=== PATIENT | female | born 1970 ===

== ENCOUNTER 2020-08-07 10:30 | Inpatient (IN) | payer OTHER ==
[~2020-08-07] VITALS: Ht 157.5 cm; Wt 72.6 kg
[2020-08-07] MEDS ORDERED: DAILY MULTIPLE1 EAC2 PO (13:44)
[2020-08-13] MEDS ORDERED: NEURONTIN600 MG PO (07:27)
[2020-08-13] MEDS ORDERED: ACETAMINOPHEN500 M1 PO (07:27)
[2020-08-13] MEDS ORDERED: SIMETHICONE125 M1 PO (07:27)
[2020-08-13] MEDS ORDERED: POLY119PG PO (07:27)
[2020-08-13] MEDS ORDERED: CODE1TAB37 PO (07:27)
== END 2020-08-13 11:14 | disposition home or self-care (01) | DRG 743 ==
LOC: OB/GYN 08-11 05:13 → O/R 08-11 05:13 → OB/GYN 08-11 08:15
PROVIDERS: ADMIT Obstetrics & Gynecology; ATTEND Obstetrics & Gynecology
PROC: 0UB70ZX Excision of Bilateral Fallopian Tubes, Open Approach, Diagnostic (ICD-10-PCS; 2020-08-11)
PROC: 0UT90ZZ Resection of Uterus, Open Approach (ICD-10-PCS; principal; 2020-08-11 08:15)
DX: N80.0 Endometriosis of uterus (principal); D25.1 Intramural leiomyoma of uterus; D25.2 Subserosal leiomyoma of uterus; N83.8 Other noninflammatory disorders of ovary, fallopian tube and broad ligament; D64.9 Anemia, unspecified; Z20.822 Contact with and (suspected) exposure to COVID-19